=== PATIENT | male | born 1980 | race Caucasian/White ===

== ENCOUNTER 2020-07-19 18:01 | Emergency (ER) | payer MEDICAID ==
[~2020-07-19] VITALS: Ht 172.7 cm; Wt 76.2 kg
[2020-07-19 18:22] VITALS: Ht 172.7 cm; Wt 76.2 kg
[2020-07-19 20:37] VITALS: BP 115/75
== END 2020-07-19 20:37 | disposition home or self-care (01) ==
LOC: ED 18:01
DX: L50.9 Urticaria, unspecified (principal)
CPT/HCPCS: J1100; J1200